=== PATIENT | female | born 1985 | race Hispanic/Latino ===

== ENCOUNTER 2018-04-07 18:16 | Emergency (ER) | payer SELFPAY ==
[2018-04-07] MEDS ORDERED: IBUPROFEN 600 MG TAB PO STA (18:54)
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
== END 2018-04-07 21:41 | disposition home or self-care (01) ==
LOC: ER 18:16
DX: M54.2 Cervicalgia (principal); S16.1XXA Strain of muscle, fascia and tendon at neck level, initial encounter; V43.52XA Car driver injured in collision with other type car in traffic accident, initial encounter; Y92.488 Other paved roadways as the place of occurrence of the external cause
CPT/HCPCS: 72050; 99284